=== PATIENT | female | born 1950 | race Caucasian/White ===

== ENCOUNTER → 2017-09-27 | Outpatient (CLI) | payer MEDICARE ==
[~2017-09-27] MED LIST: ASPI81EC PO; AZOR; BUME1 PO; CARV6.25 PO; ESCI20 PO; GEMF600 PO; GLIP10 PO; INSULANI SC; LEVFLO500 PO; METF500 PO; PRAV10 PO; Percocet 5-3251 EACH PO; SIMV10 PO; SPIHYD PO; SPIR50 PO
[2017-09-27 11:47] LABS: Hematocrit 37.3 % (33.0-51.0); Hemoglobin 11.5 g/dL (11.5-16.0)
[2017-09-27 14:48] LABS: Albumin, Blood 2.4 g/dL (3.4-5.0); Anion Gap 6 mmol/L (6-16); Blood Urea Nitrogen 35 mg/dL (8-24); Bun/Creatinine Ratio 20.1 (12.0-20.0); CO2, Blood 27 mmol/L (21-32); Calcium, Blood 9.5 mg/dL (8.5-10.1); Chloride, Blood 108 mmol/L (98-108); Creatinine, Blood 1.74 mg/dL (0.40-1.00); Glomerular Filtration Rate 31 (60-); Glucose, Blood 133 mg/dL (70-99); Phosphorus, Blood 3.4 mg/dL (2.5-4.9); Potassium, Blood 3.9 mmol/L (3.5-5.5); Sodium, Blood 141 mmol/L (136-145)
== END | disposition home or self-care (01) ==
LOC: LAB SHORT 11:14 → OLS 11:14
PROVIDERS: Internal Medicine
DX: N17.9 Acute kidney failure, unspecified (principal); N18.9 Chronic kidney disease, unspecified; D63.1 Anemia in chronic kidney disease
CPT/HCPCS: 36415; 80069; 85014; 85018

== ENCOUNTER 2018-05-24 08:36 | Observation (INO) | payer MEDICARE ==
[~2018-05-24] VITALS: Ht 162.6 cm; Wt 112.2 kg
[~2018-05-24 08:36] MED LIST changes: +CARV25 PO; +FURO20 PO; +GLIM4 PO; +INSULANPEN SC; +LISI20 PO; +Novolog100 UNIT/2 SC; +Omeprazole20 M1; -PRAV10 PO; +PRAV20 PO; +TORSE20 PO
[2018-05-24 09:31] LABS: BASOPHILS ABSOLUTE AUTO 0.03 K/mm3 (0.00-0.23); BASOPHILS PERCENT AUTO 1 % (0-2); EOSINOPHILS ABSOLUTE AUTO 0.04 K/mm3 (0.00-0.68); EOSINOPHILS PERCENT AUTO 1 % (0-6); Hematocrit 21.4 % (33.0-51.0); Hemoglobin 6.6 g/dL (11.5-16.0); IMMATURE GRAN ABSOLUTE AUTO 0.03 K/mm3 (0.00-0.10); IMMATURE GRAN PERCENT AUTO 1 % (0-1); LYMPHOCYTES ABSOLUTE AUTO 0.48 K/mm3 (0.84-5.20); LYMPHOCYTES PERCENT AUTO 8 % (21-46); MONOCYTES ABSOLUTE AUTO 0.31 K/mm3 (0.16-1.47); MONOCYTES PERCENT AUTO 5 % (4-13); Mean Corpuscular HGB 29.9 pg (26.0-34.0); Mean Corpuscular HGB Conc 30.8 g/dL (31.5-36.5); Mean Corpuscular Volume 97 fL (80-100); Mean Platelet Volume 11.5 fL (9.1-12.4); NEUTROPHILS ABSOLUTE AUTO 5.45 K/mm3 (1.96-9.15); NEUTROPHILS PERCENT AUTO 86 % (41-73); Platelet Count 173 K/mm3 (150-400); RDW Coefficient Variation 13.9 % (11.7-14.2); RDW Standard Deviation 48.5 fL (35.1-46.3); Red Blood Cell Count 2.21 M/mm3 (3.80-5.20); White Blood Cell Count 6.34 K/mm3 (4.00-11.30)
[2018-05-24 10:02] LABS: Albumin, Blood 1.8 g/dL (3.4-5.0); Albumin/Globulin Ratio 0.7 (0.8-1.8); Bilirubin, Total 0.2 mg/dL (0.1-1.0); Bun/Creatinine Ratio 28.4 (12.0-20.0); Calcium, Blood 8.1 mg/dL (8.5-10.1); Creatinine, Blood 1.97 mg/dL (0.40-1.00); Globulin, Blood 2.5 g/dL (2.2-4.0); Potassium, Blood 4.9 mmol/L (3.5-5.5); Total Protein, Blood 4.3 g/dL (6.4-8.2)
[2018-05-24 11:29] LABS: International Normalized Ratio 1.1; Prothrombin Time Results 11.3 Sec (9.7-11.5)
[2018-05-24] MEDS ORDERED: Excedrin Extra1 EACH PO (13:18)
[2018-05-24] MEDS ORDERED: CALC.25 PO (13:20)
--- NOTE | 2018-05-24 14:44 | NUR ---
FIRST UNIT PRBC'S STARTED IN ED THIS AM AND FINISHED UP IN ROOM 302. 300ML PRBC GIVEN AND 50ML FLUSHED. DAY SURGERY NURSE HERE TO GET PATIENT AND TAKEN DOWN FOR EGD. WILL STARTED 2ND UNIT PRBC'S WHEN PATIENT IS BACK FROM PROCEDURE.
--- NOTE | 2018-05-24 15:14 | NUR ---
FROM THIRD FLOOR TO [facility] ADMISSION STARTED AND ASSESMENT STARTED CALL TO PATIENTS AIRWAY PER RNS ASSESSMENT MP SCORE 4 ALSO BMI IS 42 AND OTHER COMORBIDITIES. REFERRED TO ANNESTHIOLOGIST.
--- NOTE | 2018-05-24 15:22 | NUR ---
05/24/18 1522 Popeye Price Bite Block PlacedPatient to ENDO 1History, Chart, Medications and Allergies reviewed before start of procedure.MONITOR INTACT WITH CONTINUOUS PULSE OXIMETRY AND INTERMITTENT BP.O2 VIA N/C INTACT THROUGHOUT SEDATION/PROCEDURE.See Anesthesia record
[2018-05-24 20:37] LABS: BASOPHILS ABSOLUTE AUTO 0.05 K/mm3 (0.00-0.23); BASOPHILS PERCENT AUTO 1 % (0-2); EOSINOPHILS PERCENT AUTO 1 % (0-6); Hematocrit 26.4 % (33.0-51.0); Hemoglobin 8.5 g/dL (11.5-16.0); IMMATURE GRAN ABSOLUTE AUTO 0.05 K/mm3 (0.00-0.10); IMMATURE GRAN PERCENT AUTO 1 % (0-1); LYMPHOCYTES ABSOLUTE AUTO 1.03 K/mm3 (0.84-5.20); LYMPHOCYTES PERCENT AUTO 14 % (21-46); MONOCYTES PERCENT AUTO 8 % (4-13); Mean Corpuscular HGB Conc 32.2 g/dL (31.5-36.5); Mean Platelet Volume 11.9 fL (9.1-12.4); NEUTROPHILS ABSOLUTE AUTO 5.45 K/mm3 (1.96-9.15); NEUTROPHILS PERCENT AUTO 75 % (41-73); Platelet Count 135 K/mm3 (150-400); RDW Coefficient Variation 15.1 % (11.7-14.2); RDW Standard Deviation 50.4 fL (35.1-46.3); Red Blood Cell Count 2.83 M/mm3 (3.80-5.20); White Blood Cell Count 7.28 K/mm3 (4.00-11.30)
[2018-05-24 20:38] LABS: Mean Corpuscular Volume 93 fL (80-100)
--- NOTE | 2018-05-25 01:15 | NUR ---
05/24/182036 SECOND IV IN WILIAN RUNNING PROTONIX GTT.
--- NOTE | 2018-05-25 01:16 | NUR ---
05/24/182036 PT LYING IN BED, DENIES ANY DISCOMFORT AT THIS TIME. BS 160. NO APPARENT SIGNS OF DISTRESS. CALL LIGHT IS IN REACH.
--- NOTE | 2018-05-25 01:57 | NUR ---
05/24/18 2346 PT LYING IN BED, EYES CLOSED, APPEARS TO BE RESTING. WAKES EASILY TO VERBAL STIMULI. NO APPARENT SIGNS OF DISTRESS. CALL LIGHT IS IN REACH.
--- NOTE | 2018-05-25 01:58 | NUR ---
PT LYING IN BED, EYES CLOSED, APPEARS TO BE RESTING. BREATHING IS EVEN, UNLABORED. NO APPARENT SIGNS OF DISTRESS. CALL LIGHT IS IN REACH.
--- NOTE | 2018-05-25 03:33 | NUR ---
PT LYING IN BED, EYES CLOSED, APPEARS TO BE RESTING. BREATHING IS EVEN, UNLABORED. NO APPARENT SIGNS OF DISTRESS. CALL LIGHT IS IN REACH.
--- NOTE | 2018-05-25 03:38 | NUR ---
PT IS AAO X 4, ON RA. DENIED ANY DISCOMFORT FOR THIS SHIFT. BS 160. SCD'S. 2 UNITS BLOOD GIVEN, HGB WAS 6.6, AFTER 2ND UNIT ABOUT 1999 IT WAS 8.5, ANOTHER LAB WILL BE DRAWN AT 0500. PT HAD A BLACK STOOL FOR THIS SHIFT, DR YODER.
[2018-05-25 05:29] LABS: BASOPHILS ABSOLUTE AUTO 0.05 K/mm3 (0.00-0.23); BASOPHILS PERCENT AUTO 1 % (0-2); EOSINOPHILS ABSOLUTE AUTO 0.28 K/mm3 (0.00-0.68); EOSINOPHILS PERCENT AUTO 4 % (0-6); Hemoglobin 8.3 g/dL (11.5-16.0); IMMATURE GRAN ABSOLUTE AUTO 0.03 K/mm3 (0.00-0.10); IMMATURE GRAN PERCENT AUTO 0 % (0-1); LYMPHOCYTES ABSOLUTE AUTO 0.75 K/mm3 (0.84-5.20); LYMPHOCYTES PERCENT AUTO 11 % (21-46); MONOCYTES ABSOLUTE AUTO 0.48 K/mm3 (0.16-1.47); MONOCYTES PERCENT AUTO 7 % (4-13); Mean Corpuscular HGB 29.9 pg (26.0-34.0); Mean Corpuscular HGB Conc 31.9 g/dL (31.5-36.5); Mean Corpuscular Volume 94 fL (80-100); Mean Platelet Volume 11.5 fL (9.1-12.4); NEUTROPHILS ABSOLUTE AUTO 5.14 K/mm3 (1.96-9.15); NEUTROPHILS PERCENT AUTO 77 % (41-73); Platelet Count 137 K/mm3 (150-400); RDW Coefficient Variation 15.9 % (11.7-14.2); RDW Standard Deviation 53.2 fL (35.1-46.3); Red Blood Cell Count 2.78 M/mm3 (3.80-5.20); White Blood Cell Count 6.73 K/mm3 (4.00-11.30)
--- NOTE | 2018-05-25 05:30 | NUR ---
PT LYING IN BED, EYES CLOSED, APPEARS TO BE RESTING. BREATHING IS EVEN, UNLABORED. NO APPARENT SIGNS OF DISTRESS. CALL LIGHT IS IN REACH. NO OTHER CHANGES THIS SHIFT.
[2018-05-25] MEDS ORDERED: PANT40 PO (10:55)
--- NOTE | 2018-05-25 12:27 | NUR ---
PATIENT D/C'D TO HOME WITH FRIEND. D/C INSTRUCTIONS AND EDUCATIONN DISCUSSED WITH PATIENT AND COPY PROVIDED. RX MEDICATIONS FAXED TO [facility]. PATIENT DENIES ANY FURTHER QUESTIONS OR CONCERNS.
[2018-07-03] MEDS ORDERED: BENZ100A PO (14:51)
[2018-07-03] MEDS ORDERED: ERGO400 PO (14:53)
[2018-07-03] MEDS ORDERED: IRON150C PO (14:53)
[2018-07-09] MEDS ORDERED: Omeprazole20 M1 (12:40)
== END 2018-05-25 12:28 | disposition home or self-care (01) ==
LOC: ER 08:36 → MEDS 08:37 → ENPENDDIS 05-25 10:56 → MEDS 05-25 12:28
PROVIDERS: Emergency Medicine; Internal Medicine Gastroenterology; ADMIT Hospitalist
PROC: 0DB68ZX Excision of Stomach, Via Natural or Artificial Opening Endoscopic, Diagnostic (ICD-10-PCS; principal; 2018-05-24 15:00)
DX: K25.9 Gastric ulcer, unspecified as acute or chronic, without hemorrhage or perforation (principal); D62 Acute posthemorrhagic anemia; I13.0 Hypertensive heart and chronic kidney disease with heart failure and stage 1 through stage 4 chronic kidney disease, or unspecified chronic kidney disease; I50.22 Chronic systolic (congestive) heart failure; N18.4 Chronic kidney disease, stage 4 (severe); E11.22 Type 2 diabetes mellitus with diabetic chronic kidney disease; E66.9 Obesity, unspecified; K92.0 Hematemesis; K62.5 Hemorrhage of anus and rectum; E78.5 Hyperlipidemia, unspecified; F32.9 Major depressive disorder, single episode, unspecified; Z79.899 Other long term (current) drug therapy
CPT/HCPCS: 36415; 36430; 80053; 82947; 83690; 85025; 85610; 86850; 86900; 86901; 86923; 88305; 88342; 96365; 96366; 96376; 99285-25; C9113; G0378; J2250; J7030; J7120; P9016

== ENCOUNTER 2018-08-14 09:56 | Day surgery (SDC) | payer MEDICARE ==
[~2018-08-14] VITALS: Wt 123.7 kg
[~2018-08-14 09:56] MED LIST changes: +BENZ100A PO; +CALC.25 PO; +ERGO400 PO; +Excedrin Extra1 EACH PO; +IRON150C PO; +PANT40 PO
--- NOTE | 2018-08-14 10:32 | NUR ---
History, Chart, Medications and Allergies reviewed before start of procedure. Patient states colon prep results clear. Patient States Post-Procedure ride home has been arranged.
--- NOTE | 2018-08-14 10:56 | NUR ---
DR BURDICK AT BEDSIDE. PT SAT 77-LOW 80% USING EARPROBE ON BILAT EARS, WAVEFORM CONSISTANT. PT DENIES SOB, NO COUGH, LUNGS ARE CLEAR. BLOOD SUGAR 40. PT STATES BLOOD SUGAR WAS 61 THIS AM WHEN SHE CHECKED. STAT ABG DRAWN, WILL START IV AND TREAT LOW BLOOD SUGAR.
[2018-08-14 11:04] LABS: PCO2 Arterial 49.4 mmHg (35-45); PO2 Arterial 133 mmHg (80-100); pH Blood Arterial 7.34 (7.35-7.45)
--- NOTE | 2018-08-14 11:09 | NUR ---
DIFFICULTY STARTING IV, ABG RESULTS BACK, DR BURDICK CANCELLED PROCEDURE. PT DRINKING JUICE FOR LOW BLOOD SUGAR. PT STATES SHE FEELING SIGNS OF HYPOGLYCEMIA. DR BURDICK SPEAKING TO DR HANSEN.
--- NOTE | 2018-08-14 11:22 | NUR ---
DR HANSEN SPOKE WITH PT AND PT FRIEND GINA. DR HANSEN DOES NOT FEEL PT NEEDS TO GO TO THE ER AT THIS TIME. PT DENIES FEELING SOB, O2 SAT PER FINGER PROBE 88-92% ON ROOM AIR.
--- NOTE | 2018-08-14 11:37 | NUR ---
REPEAT BLOOD SUGAR-59, GAVE SECOND APPLE JUICE. TOLERATING WELL, PT HAS NO COMPLAINTS. PT TO GET DRESSED.
--- NOTE | 2018-08-14 13:16 | NUR ---
1150- PT DRESSED, ESCORTED OUT OF DEPARTMENT VIA W/C. PT ADVOCATE HAS NOT RETURNED CALL YET, WILL RETRY AND CONTACT PT REGARDING HER ADVICE.
--- NOTE | 2018-08-14 13:55 | NUR ---
SUNITA HOYT RETURNED MY CALL. SHE WILL CALL PT TO SEE WHAT SERVICES SHE CAN HELP HER WITH.
== END 2018-08-14 23:00 | disposition home or self-care (01) ==
LOC: ORSCMMR 09:56 → ORD 10:30 → ORSCMMR 10:30
PROVIDERS: Internal Medicine Gastroenterology
DX: Z53.9 Procedure and treatment not carried out, unspecified reason (principal); Z86.010 Personal history of colon polyps
CPT/HCPCS: 36600; 82803; 82947; J7120

== ENCOUNTER 2018-09-13 00:25 | Inpatient (IN) | payer MEDICARE ==
[~2018-09-13] VITALS: Ht 162.6 cm; Wt 116.1 kg
[2018-09-13 01:25] LABS: Albumin, Blood 2.3 g/dL (3.4-5.0); Albumin/Globulin Ratio 0.7 (0.8-1.8); Bilirubin, Total 0.3 mg/dL (0.1-1.0); Calcium, Blood 8.5 mg/dL (8.5-10.1); Globulin, Blood 3.2 g/dL (2.2-4.0); Total Protein, Blood 5.5 g/dL (6.4-8.2); Troponin I 0.025 ng/mL (0.000-0.040)
[2018-09-13 01:27] LABS: BASOPHILS ABSOLUTE AUTO 0.03 K/mm3 (0.00-0.23); BASOPHILS PERCENT AUTO 1 % (0-2); EOSINOPHILS ABSOLUTE AUTO 0.14 K/mm3 (0.00-0.68); EOSINOPHILS PERCENT AUTO 3 % (0-6); IMMATURE GRAN ABSOLUTE AUTO 0.01 K/mm3 (0.00-0.10); IMMATURE GRAN PERCENT AUTO 0 % (0-1); LYMPHOCYTES ABSOLUTE AUTO 0.46 K/mm3 (0.84-5.20); LYMPHOCYTES PERCENT AUTO 11 % (21-46); MONOCYTES PERCENT AUTO 9 % (4-13); Mean Corpuscular HGB 27.4 pg (26.0-34.0); Mean Corpuscular HGB Conc 29.7 g/dL (31.5-36.5); Mean Corpuscular Volume 92 fL (80-100); Mean Platelet Volume 12.3 fL (9.1-12.4); NEUTROPHILS ABSOLUTE AUTO 3.23 K/mm3 (1.96-9.15); NEUTROPHILS PERCENT AUTO 76 % (41-73); Platelet Count 158 K/mm3 (150-400); RDW Coefficient Variation 17.2 % (11.7-14.2); RDW Standard Deviation 58.1 fL (35.1-46.3); Red Blood Cell Count 4.01 M/mm3 (3.80-5.20); White Blood Cell Count 4.27 K/mm3 (4.00-11.30)
[2018-09-13 05:51] LABS: Hematocrit 36.7 % (33.0-51.0); Hemoglobin 10.5 g/dL (11.5-16.0); Mean Corpuscular HGB 26.6 pg (26.0-34.0); Mean Corpuscular HGB Conc 28.6 g/dL (31.5-36.5); Mean Corpuscular Volume 93 fL (80-100); Mean Platelet Volume 12.6 fL (9.1-12.4); Platelet Count 145 K/mm3 (150-400); RDW Coefficient Variation 17.2 % (11.7-14.2); RDW Standard Deviation 58.1 fL (35.1-46.3); Red Blood Cell Count 3.95 M/mm3 (3.80-5.20); White Blood Cell Count 3.93 K/mm3 (4.00-11.30)
--- NOTE | 2018-09-13 05:58 | NUR ---
0300 68 Y/O MORBID OBESE FEMALE ADMITTED TO ROOM 363 PER STRETCHER FROM ER. PT HAS PURSE AT SIDE AND DENIES REQUIRING ANYTHING TO BE LOCKED UP AT THIS TIME AND WILL SEND BELONGINGS HOME WHEN HER BROTHER VISITS TODAY. PT VOICED THAT SHE HAVING INCREASING DIFFICULTY WITH PERFORMING ADLS AND IADLS IN HER HOME. PT VOICED SHE EATS ALOT OF PEANUT BUTTER AND JELLY SANDWICHES, UNABLE TO WASH DISHES, PERFORM WAREHOUSE MANAGER OR PROPERLY BATHE SELF ON REGULAR BASIS.
--- NOTE | 2018-09-13 06:02 | NUR ---
68 Y/O FEMALE RESTED COMFORTABLY THIS AM. PT WAS INCONTINENT URINE WITH STRONG ODOR NOTED DURING CLEANSING UP OF PATIENT THIS AM. PT DENIES PAIN OR NAUSEA. PTS BED LOW POSITION, CALL LIGHT AT SIDE.
[2018-09-13 06:11] LABS: Albumin, Blood 2.2 g/dL (3.4-5.0); Albumin/Globulin Ratio 0.8 (0.8-1.8); Bilirubin, Total 0.3 mg/dL (0.1-1.0); Bun/Creatinine Ratio 21.6 (12.0-20.0); Calcium, Blood 8.7 mg/dL (8.5-10.1); Creatinine, Blood 1.99 mg/dL (0.40-1.00); Globulin, Blood 2.9 g/dL (2.2-4.0); Potassium, Blood 3.9 mmol/L (3.5-5.5); Total Protein, Blood 5.1 g/dL (6.4-8.2)
--- NOTE | 2018-09-13 19:00 | NUR ---
SHIFT SUMMARY NO ACUTE CHANGES. PATIENT DENIES PAIN, NAUSEA, AND SHORTNESS OF BREATH. PATIENT WORKED WITH PT TODAY, UP 1 ASSIST W/FWW TO BR. PATIENT HAD ECHO AND VENOUS DOPPLER OF LEGS TODAY. PLEASANT AND COOPERATIVE. SOCIAL SERVICE CONSULT AND CARDIOLOGY CONSULT PUT IN TODAY. CARDIOLOGY TO SEE PATIENT IN THE MORNING. CALL LIGHT IN REACH, MONITOR.
--- NOTE | 2018-09-13 20:02 | NUR ---
DR PATEL CALLED STATES HE LOOKED AT PT CHART AND FEELS SHE IS STABLE ENOUGH AND UNABLE TO SEE HER TONIGHT. SUGGESTS NURSE TO PAGE BOX TOE FLANGER STITCHDOWNS FOR TOMORROW TO SEE PT.
--- NOTE | 2018-09-13 21:33 | NUR ---
BOWLING BALL MARKER PAGED, BUT NO CALL BACK OF YET
[2018-09-14 05:03] LABS: BASOPHILS ABSOLUTE AUTO 0.03 K/mm3 (0.00-0.23); BASOPHILS PERCENT AUTO 1 % (0-2); EOSINOPHILS ABSOLUTE AUTO 0.15 K/mm3 (0.00-0.68); EOSINOPHILS PERCENT AUTO 5 % (0-6); Hemoglobin 10.7 g/dL (11.5-16.0); IMMATURE GRAN ABSOLUTE AUTO 0.01 K/mm3 (0.00-0.10); IMMATURE GRAN PERCENT AUTO 0 % (0-1); LYMPHOCYTES ABSOLUTE AUTO 0.34 K/mm3 (0.84-5.20); LYMPHOCYTES PERCENT AUTO 11 % (21-46); MONOCYTES ABSOLUTE AUTO 0.33 K/mm3 (0.16-1.47); MONOCYTES PERCENT AUTO 11 % (4-13); Mean Corpuscular HGB 26.7 pg (26.0-34.0); Mean Corpuscular HGB Conc 28.9 g/dL (31.5-36.5); Mean Corpuscular Volume 92 fL (80-100); Mean Platelet Volume 12.2 fL (9.1-12.4); NEUTROPHILS ABSOLUTE AUTO 2.25 K/mm3 (1.96-9.15); NEUTROPHILS PERCENT AUTO 72 % (41-73); Platelet Count 145 K/mm3 (150-400); RDW Coefficient Variation 17.1 % (11.7-14.2); RDW Standard Deviation 58.1 fL (35.1-46.3); Red Blood Cell Count 4.01 M/mm3 (3.80-5.20); White Blood Cell Count 3.11 K/mm3 (4.00-11.30)
[2018-09-14 05:26] LABS: Albumin/Globulin Ratio 0.7 (0.8-1.8); Bilirubin, Total 0.5 mg/dL (0.1-1.0); Bun/Creatinine Ratio 20.4 (12.0-20.0); Calcium, Blood 8.7 mg/dL (8.5-10.1); Creatinine, Blood 2.01 mg/dL (0.40-1.00); Globulin, Blood 2.9 g/dL (2.2-4.0); Potassium, Blood 3.9 mmol/L (3.5-5.5); Total Protein, Blood 4.9 g/dL (6.4-8.2)
--- NOTE | 2018-09-14 06:01 | NUR ---
SHIFT SUMMARY PT SLEPT WELL DURING THE NIGHT, INCONTINENT OF URINE. NO ACUTE EVENTS OR CHANGES NOTED DURING THE NIGHT, WILL CONTINUE TO MONITOR.
[2018-09-14 13:13] LABS: Adenovirus F 40/41 Not Detected (NOT DETECT); Astrovirus Not Detected (NOT DETECT); Campylobacter Sp Not Detected (NOT DETECT); Cryptosporidium Not Detected (NOT DETECT); Cyclospora Cayetanensis Not Detected (NOT DETECT); E. Coli O157 Not Detected (NOT DETECT); Entamoeba Histolytica Not Detected (NOT DETECT); Enteroaggregative E. coli-EAEC Not Detected (NOT DETECT); Enteropathogenic E. coli-EPEC Not Detected (NOT DETECT); Enterotoxigenic E. coli-ETEC Not Detected (NOT DETECT); Giardia Lamblia Not Detected (NOT DETECT); Norovirus GI/GII Not Detected (NOT DETECT); Plesiomonas Shigelloides Not Detected (NOT DETECT); Rotavirus A Not Detected (NOT DETECT); Salmonella Sp Not Detected (NOT DETECT); Sapovirus Not Detected (NOT DETECT); Shiga Toxin-prod E. coli-STEC Not Detected (NOT DETECT); Shigella/Enteroin E. coli-EIEC Not Detected (NOT DETECT); Vibrio Cholerae Not Detected (NOT DETECT); Vibrio Sp Not Detected (NOT DETECT); Yersinia Enterocolitica Not Detected (NOT DETECT)
--- NOTE | 2018-09-14 13:25 | NUR ---
Pt. is sitting up in a chair reading she is doing well and [facility]
--- NOTE | 2018-09-14 15:40 | NUR ---
SUMMARY PT IS A/O X 4, PLEASANT/COOPERATIVE. 1 ASSIST W FWW TO BR. DR JOHNSON IN THIS AM FOR CARDIAC CONSULT. REVIEW HX & TX PLAN WITH PT. ADJUST BP MEDS D/T ELEVATED SBP. CHANGE IV LASIX TO 20MG TID. PT STATE NO SOB @ REST, STATE NO PAIN/DISCOMFORT TODAY. LUNGS DECREASED T/O WITH CRACKLES BASES, BIOX >90% RA. BLE EDEMA 3+, ENCOURAGE PT TO ELEVATE WHEN IN BED. DR JOHNSON PLACE PT ON FLUID RESTRICTION 1.2L/DAY. PT VERBALIZE UNDERSTANDING.
[2018-09-15 04:45] LABS: Hematocrit 33.1 % (33.0-51.0); Hemoglobin 9.8 g/dL (11.5-16.0); Mean Corpuscular HGB 27.1 pg (26.0-34.0); Mean Corpuscular HGB Conc 29.6 g/dL (31.5-36.5); Mean Corpuscular Volume 91 fL (80-100); Mean Platelet Volume 11.2 fL (9.1-12.4); Platelet Count 142 K/mm3 (150-400); RDW Coefficient Variation 17.1 % (11.7-14.2); RDW Standard Deviation 57.4 fL (35.1-46.3); Red Blood Cell Count 3.62 M/mm3 (3.80-5.20); White Blood Cell Count 2.99 K/mm3 (4.00-11.30)
[2018-09-15 04:51] LABS: BASOPHILS ABSOLUTE AUTO 0.03 K/mm3 (0.00-0.23); BASOPHILS PERCENT AUTO 1 % (0-2); EOSINOPHILS ABSOLUTE AUTO 0.17 K/mm3 (0.00-0.68); EOSINOPHILS PERCENT AUTO 6 % (0-6); Hematocrit 33.8 % (33.0-51.0); Hemoglobin 9.8 g/dL (11.5-16.0); IMMATURE GRAN ABSOLUTE AUTO 0.01 K/mm3 (0.00-0.10); IMMATURE GRAN PERCENT AUTO 0 % (0-1); LYMPHOCYTES ABSOLUTE AUTO 0.47 K/mm3 (0.84-5.20); LYMPHOCYTES PERCENT AUTO 16 % (21-46); MONOCYTES ABSOLUTE AUTO 0.31 K/mm3 (0.16-1.47); MONOCYTES PERCENT AUTO 10 % (4-13); Mean Corpuscular HGB 26.9 pg (26.0-34.0); Mean Corpuscular Volume 93 fL (80-100); Mean Platelet Volume 11.6 fL (9.1-12.4); NEUTROPHILS PERCENT AUTO 67 % (41-73); Platelet Count 142 K/mm3 (150-400); RDW Coefficient Variation 17.1 % (11.7-14.2); RDW Standard Deviation 58.3 fL (35.1-46.3); Red Blood Cell Count 3.64 M/mm3 (3.80-5.20); White Blood Cell Count 2.99 K/mm3 (4.00-11.30)
[2018-09-15 05:33] LABS: Calcium, Blood 8.6 mg/dL (8.5-10.1); Creatinine, Blood 2.05 mg/dL (0.40-1.00); Magnesium, Blood 2.3 mg/dL (1.6-2.4)
[2018-09-15 05:46] LABS: Albumin, Blood 1.9 g/dL (3.4-5.0); Anion Gap 4 mmol/L (6-16); Blood Urea Nitrogen 42 mg/dL (8-24); Bun/Creatinine Ratio 20.6 (12.0-20.0); CO2, Blood 31 mmol/L (21-32); Calcium, Blood 8.5 mg/dL (8.5-10.1); Chloride, Blood 108 mmol/L (98-108); Creatinine, Blood 2.04 mg/dL (0.40-1.00); Glomerular Filtration Rate 26 (60-); Glucose, Blood 94 mg/dL (70-99); Phosphorus, Blood 3.3 mg/dL (2.5-4.9); Sodium, Blood 143 mmol/L (136-145)
--- NOTE | 2018-09-15 05:47 | NUR ---
SHIFT SUMMARY PT SLEPT WELL DURING THE NIGHT, NO ACUTE CHANGES NOTED. WILL CONTINUE TO MONITOR. PT INCONTINENT DURING THE NIGHT.
--- NOTE | 2018-09-15 14:21 | NUR ---
Pt. is sitting in a chair resting her lunch, she reports do well encouraged her and offered prayers
--- NOTE | 2018-09-15 17:51 | NUR ---
SUMMARY PT IS A/O X4, PLEASANT AFFECT, STATE NO PAIN, NO SHORTNESS OF BREATH, NO DISCOMFORT T/O DAY. SHE IS 1 ASSIST TO CHAIR/BSC. HOSPITAL ADMITTING CLERK ASSIST HER TO SHOWER TODAY. CARDIOLOGY, DR JOHNSON IN TO SEE HER THIS AM, INCREASE BP MEDS R/T HTN. THIS AFTERNOON SBP 188, PRN IV HYDRALAZINE GIVEN, SBP DECREASE SOMEWHAT TO 180. TELE CONTINUES, SR W BBB 60'S. LUNGS DECREASED W CRACKLES BASES HOWEVER SEEM IMPROVED FROM PREVIOUS DAY, BLE EDEMA 2-3+, STANDING WT OBTAINED, 258 LBS, PT STATE 10LB WT LOSS SINCE ADMIT. IV LASIX CONTINUES. PT HAS BEEN UP IN CHAIR FOR ALL MEALS TODAY.
[2018-09-16 04:44] LABS: Hematocrit 33.6 % (33.0-51.0); Hemoglobin 9.8 g/dL (11.5-16.0); Mean Corpuscular HGB 26.8 pg (26.0-34.0); Mean Corpuscular HGB Conc 29.2 g/dL (31.5-36.5); Mean Corpuscular Volume 92 fL (80-100); Mean Platelet Volume 11.1 fL (9.1-12.4); Platelet Count 128 K/mm3 (150-400); RDW Coefficient Variation 17.2 % (11.7-14.2); RDW Standard Deviation 58.4 fL (35.1-46.3); Red Blood Cell Count 3.66 M/mm3 (3.80-5.20); White Blood Cell Count 2.96 K/mm3 (4.00-11.30)
[2018-09-16 04:58] LABS: Anion Gap 4 mmol/L (6-16); Blood Urea Nitrogen 44 mg/dL (8-24); Bun/Creatinine Ratio 21.1 (12.0-20.0); CO2, Blood 32 mmol/L (21-32); Calcium, Blood 8.6 mg/dL (8.5-10.1); Chloride, Blood 106 mmol/L (98-108); Creatinine, Blood 2.09 mg/dL (0.40-1.00); Glomerular Filtration Rate 25 (60-); Glucose, Blood 124 mg/dL (70-99); Phosphorus, Blood 3.4 mg/dL (2.5-4.9); Potassium, Blood 4.2 mmol/L (3.5-5.5); Sodium, Blood 142 mmol/L (136-145)
--- NOTE | 2018-09-16 07:30 | NUR ---
NOC SHIFT SUMARY PT PLEASANT AND COOPERATIVE WITH CARE THIS NIGHT. VSS. SLEPT MOST OF NIGHT. NO ACUTE CHANGES NOTED. REPORT TO ONCOMING RN.
--- NOTE | 2018-09-16 18:15 | NUR ---
PT AOX4 AND COOPERATIVE OF ALL CARE. ONE PERSON ASSIST TO CHAIR OR BED WITH GAITBELT. PT CALLS APPROPRIATELY. DIRRHEA TREATED PER EMAR. PT IS ALSO INCONTENENT OF BOWEL AND BLADDER. PT STATES SHE HAS HAD NO SOB TODAY AND IS FEELING MUCH BETTER AT THIS TIME WILL CONTINUE TO MONITOR.
[2018-09-17 05:22] LABS: Hematocrit 33.6 % (33.0-51.0); Hemoglobin 9.7 g/dL (11.5-16.0); Mean Corpuscular HGB 26.4 pg (26.0-34.0); Mean Corpuscular HGB Conc 28.9 g/dL (31.5-36.5); Mean Corpuscular Volume 91 fL (80-100); Mean Platelet Volume 12.3 fL (9.1-12.4); Platelet Count 141 K/mm3 (150-400); RDW Coefficient Variation 17.2 % (11.7-14.2); RDW Standard Deviation 57.3 fL (35.1-46.3); Red Blood Cell Count 3.68 M/mm3 (3.80-5.20)
[2018-09-17 05:49] LABS: Albumin, Blood 2.1 g/dL (3.4-5.0); Anion Gap 4 mmol/L (6-16); Blood Urea Nitrogen 48 mg/dL (8-24); Bun/Creatinine Ratio 20.7 (12.0-20.0); CO2, Blood 31 mmol/L (21-32); Calcium, Blood 8.6 mg/dL (8.5-10.1); Chloride, Blood 106 mmol/L (98-108); Creatinine, Blood 2.32 mg/dL (0.40-1.00); Glomerular Filtration Rate 22 (60-); Glucose, Blood 87 mg/dL (70-99); Phosphorus, Blood 3.9 mg/dL (2.5-4.9); Potassium, Blood 4.4 mmol/L (3.5-5.5); Sodium, Blood 141 mmol/L (136-145)
--- NOTE | 2018-09-17 05:54 | NUR ---
NOC SHIFT SUMMARY PT IS VERY PLEASANT AND COOPERATIVE WITH CARE. WAS TREATED FOR DIARRHEA WITH IMMODIUM. SHE HAS LARGELY SLEPT THIS NIGHT. NO ACUTE CHANGES NOTED. APPEARS IN NO ACUTE DISTRESS. WILL CONTINUE TO MONITOR.
[2018-09-17] MEDS ORDERED: HUMALOG KW200 UNIT/1 (12:05)
[2018-09-17] MEDS ORDERED: ONDA4ODT MM (12:06)
[2018-09-17] MEDS ORDERED: Anti-Diarrheal2 MG PO (12:06)
[2018-09-17] MEDS ORDERED: AMLO5 PO (12:06)
--- NOTE | 2018-09-17 13:24 | NUR ---
PT TRANFERED TO [facility] AT 1320 VIA [facility]. PT AOX4 AND COOPERATIVE OF ALL CARE. REPORT CALLED TO RECIEVING RN PRIOR TO TRANSPORT. ALL BELONGINGS WERE TRANSFERED WITH PT. PACKET SENT WITH BOILERMAKER.
== END 2018-09-17 13:15 | DRG 291 ==
LOC: ER 00:25 → MEDS 00:26 → ENPENDDIS 09-17 11:00 → EDPENDDIS 09-17 11:00 → MEDS 09-17 13:15
PROVIDERS: Emergency Medicine; Family Medicine; Internal Medicine Cardiovascular Disease; ADMIT Internal Medicine
DX: I13.0 Hypertensive heart and chronic kidney disease with heart failure and stage 1 through stage 4 chronic kidney disease, or unspecified chronic kidney disease (principal); I50.43 Acute on chronic combined systolic (congestive) and diastolic (congestive) heart failure; Z68.42 Body mass index [BMI] 45.0-49.9, adult; N18.4 Chronic kidney disease, stage 4 (severe); E11.22 Type 2 diabetes mellitus with diabetic chronic kidney disease; Z51.5 Encounter for palliative care; I42.0 Dilated cardiomyopathy; E78.5 Hyperlipidemia, unspecified; E66.01 Morbid (severe) obesity due to excess calories; Z66 Do not resuscitate; I25.10 Atherosclerotic heart disease of native coronary artery without angina pectoris; G47.30 Sleep apnea, unspecified; I27.20 Pulmonary hypertension, unspecified; Z87.81 Personal history of (healed) traumatic fracture
CPT/HCPCS: 36415; 71046; 80048; 80053; 80069; 82947; 83735; 83880; 84443; 84484; 85025; 85027; 87507; 93005; 93010; 93306; 93971; 94667; 94760; 96374; 97110; 97116; 97162; 97166; 97530; 97535; 98960; 99285-25; J0360; J1650; J1940

== ENCOUNTER 2018-11-20 14:17 | Inpatient (IN) | payer MEDICARE ==
[~2018-11-20] VITALS: Ht 162.6 cm; Wt 120.1 kg
[~2018-11-20 14:17] MED LIST changes: +AMLO5 PO; +Anti-Diarrheal2 MG PO; +HUMALOG KW200 UNIT/1; +ONDA4ODT MM
[2018-11-20 14:45] LABS: BASOPHILS ABSOLUTE AUTO 0.05 K/mm3 (0.00-0.23); BASOPHILS PERCENT AUTO 1 % (0-2); EOSINOPHILS ABSOLUTE AUTO 0.14 K/mm3 (0.00-0.68); EOSINOPHILS PERCENT AUTO 3 % (0-6); Hemoglobin 11.1 g/dL (11.5-16.0); IMMATURE GRAN ABSOLUTE AUTO 0.02 K/mm3 (0.00-0.10); IMMATURE GRAN PERCENT AUTO 0 % (0-1); LYMPHOCYTES ABSOLUTE AUTO 0.29 K/mm3 (0.84-5.20); LYMPHOCYTES PERCENT AUTO 6 % (21-46); MONOCYTES PERCENT AUTO 8 % (4-13); Mean Corpuscular HGB 26.7 pg (26.0-34.0); Mean Corpuscular HGB Conc 27.8 g/dL (31.5-36.5); Mean Corpuscular Volume 96 fL (80-100); Mean Platelet Volume 12.4 fL (9.1-12.4); NEUTROPHILS ABSOLUTE AUTO 4.38 K/mm3 (1.96-9.15); NEUTROPHILS PERCENT AUTO 83 % (41-73); Platelet Count 196 K/mm3 (150-400); RDW Coefficient Variation 18.6 % (11.7-14.2); RDW Standard Deviation 65.1 fL (35.1-46.3); Red Blood Cell Count 4.16 M/mm3 (3.80-5.20); White Blood Cell Count 5.28 K/mm3 (4.00-11.30)
[2018-11-20 15:07] LABS: Albumin, Blood 2.4 g/dL (3.4-5.0); Albumin/Globulin Ratio 0.7 (0.8-1.8); Bilirubin, Total 0.4 mg/dL (0.1-1.0); Calcium, Blood 8.4 mg/dL (8.5-10.1); Creatinine, Blood 2.08 mg/dL (0.40-1.00); Globulin, Blood 3.5 g/dL (2.2-4.0); Potassium, Blood 5.3 mmol/L (3.5-5.5); Total Protein, Blood 5.9 g/dL (6.4-8.2); Troponin I 0.022 ng/mL (0.000-0.040)
[2018-11-20 16:12] LABS: PCO2 Arterial 60.1 mmHg (35-45); PO2 Arterial 44.2 mmHg (80-100); pH Blood Arterial 7.32 (7.35-7.45)
--- NOTE | 2018-11-20 19:10 | NUR ---
ADMIT NOTE/ SHIFT SUMMARY- PT ADMITTED AT SHIFT CHANGE.PT ARRIVED ON MEDICAL FLOOR PT WAS ABLE TO STAND AND PIVOT TRANSFER TO THE BED FROM THE [facility]. PT RECIEVED IV LASIX IN THE ED PER REPORT, PT ATTENDS CLOTHING AND THE BED WERE SATURATED WHEN SHE ARRIVED EXTRA LARGE UNMEASURED VOID. PER TELEPHONE REPORT FROM CELIO SHEPPARD PT WAS ASKED ABOUT USING THE BEDSIDE COMODE AND SHE STATED "I HAVE ATTENDS ON, THAT'S WHAT THEY'RE FOR." PT ALERT AND ORIENTED, 2 PERSON MAX ASSIST WITH TRANSFERS AT THIS TIME. PER PT SHE IS W/C BOUND AT BASELINE, PT RA AT BASELINE CURRENTLY ON 4L NC.
[2018-11-20] MEDS ORDERED: AMLO5 PO (19:11)
[2018-11-20] MEDS ORDERED: TORSE20 PO (19:17)
[2018-11-21 05:11] LABS: BASOPHILS ABSOLUTE AUTO 0.05 K/mm3 (0.00-0.23); BASOPHILS PERCENT AUTO 1 % (0-2); EOSINOPHILS ABSOLUTE AUTO 0.21 K/mm3 (0.00-0.68); EOSINOPHILS PERCENT AUTO 5 % (0-6); Hematocrit 38.5 % (33.0-51.0); Hemoglobin 10.8 g/dL (11.5-16.0); IMMATURE GRAN ABSOLUTE AUTO 0.01 K/mm3 (0.00-0.10); IMMATURE GRAN PERCENT AUTO 0 % (0-1); LYMPHOCYTES ABSOLUTE AUTO 0.37 K/mm3 (0.84-5.20); LYMPHOCYTES PERCENT AUTO 9 % (21-46); MONOCYTES PERCENT AUTO 12 % (4-13); Mean Corpuscular HGB 26.9 pg (26.0-34.0); Mean Corpuscular HGB Conc 28.1 g/dL (31.5-36.5); Mean Corpuscular Volume 96 fL (80-100); Mean Platelet Volume 11.5 fL (9.1-12.4); NEUTROPHILS ABSOLUTE AUTO 3.06 K/mm3 (1.96-9.15); NEUTROPHILS PERCENT AUTO 73 % (41-73); Platelet Count 196 K/mm3 (150-400); RDW Coefficient Variation 18.3 % (11.7-14.2); RDW Standard Deviation 63.7 fL (35.1-46.3); Red Blood Cell Count 4.01 M/mm3 (3.80-5.20)
[2018-11-21 05:31] LABS: Albumin, Blood 2.2 g/dL (3.4-5.0); Anion Gap 1 mmol/L (6-16); Blood Urea Nitrogen 53 mg/dL (8-24); Bun/Creatinine Ratio 25.4 (12.0-20.0); CO2, Blood 33 mmol/L (21-32); Calcium, Blood 8.4 mg/dL (8.5-10.1); Chloride, Blood 109 mmol/L (98-108); Creatinine, Blood 2.09 mg/dL (0.40-1.00); Glomerular Filtration Rate 25 (60-); Glucose, Blood 138 mg/dL (70-99); Phosphorus, Blood 4.9 mg/dL (2.5-4.9); Potassium, Blood 5.1 mmol/L (3.5-5.5); Sodium, Blood 143 mmol/L (136-145)
--- NOTE | 2018-11-21 06:23 | NUR ---
SHIFT SUMMARY NO ACUTE EVENTS OVERNIGHT. PATIENT ADMITTED TO TAKING 2 HOME MEDICATIONS PRAVASTATIN AND LISINOPRIL. NURSE REMOVED PATIENTS HOME MEDS FROM ROOM AND TURNED THEM INTO PHARMACY, PRINTOUT IN CHART. PATEINT EDUCATED ON HE IMPORTANCE OF NOT TAKING HOME MEDS WHILE BEING TREATED IN THE HOSPITAL SETTING. PATIENT AGREEABLE. PATIENT INCONTINENT OF BOTH BOWEL AND BLADDER BUT CAN TELL WHEN SHE HAS GONE. PATIENT UP WITH 1 PERSON ASSIST/GAIT BELT/ FWW. COULD USE BSC IF WILLING TO ALERT STAFF. NITROBID ON RIGHT CHEST. IV STARTED IN LEFT AC-PATENT. WILL CONTINUE TO MONITOR
--- NOTE | 2018-11-21 10:43 | NUR ---
PT BP THIS AM WAS 183/73, LASIX GIVEN ORDERED AND BP CAME DOWN TO 141/57, PRN HYDRALAZINE WAS NOT GIVEN AND PT HAS NO S/S OF ELEVATED BP.
--- NOTE | 2018-11-21 15:30 | NUR ---
Attempted to see pt. She is sound asleep. Will check back this leslie or tomorrow am.
--- NOTE | 2018-11-21 15:49 | NUR ---
[facility] care Initial assessment and vist. Visited with pt just after she woke to Engine Watchman and me at the bedside. She initially said "good morning" but looked at the clock and recognized that it was late afternoon. Despite being sleepy she was receptive to our visit and conversation. She confirms that she does not want any resuscitative efforts if her heart or lungs were to fail. When asked if she would want to return to the hospital for treatment if she were to have similar heart/lung s/s in the future she said, "Yes, because they can almost always make me feel better", referring to increase in diuresis and decrease in SOBOE. She says she initially needed more help at [facility] but is happy with the level of help combined with HH. Assessment of s/s done. She denies pain or distress. I did not observe any nonverbal indicators of pain, anxiety or distress. I asked her if she had identified a surrogate medical decision maker if she could not communicate or direct her care. She states her sister in law, Keisha Crowder [phone] is her medical POA and they have discussed what she wants. She is at peace with dying and not intervening if that is her s/s progress and she is unable to get relief with tx here in the future. We discussed the availability of additional support and/or hospice services if she decides that returning to the hospital is not what she wants. Instructed her to request HH SPA COORDINATOR if additional help needed at [facility]. Instructed her she may meet a d/c discharge planner tomorrow who would assist with transfer back to [facility] and resume of HH when medically ready. Pt had no requests other than some quiet time to rest and return to her nap.
--- NOTE | 2018-11-21 16:19 | NUR ---
[facility] initial visit: Marlin is active in her Religion jeison and will be followed by [facility] for her spiritual needs. She is a delightful woman, smiles easily, and engages well. She has never been and never had children. Her siblings and their children are attentive and loving. She would like her CARI to be her medical spokesperson. I was present in room when Yaz, Palliative Care RN, spoke to Marlin about her medical wishes. She does not want CPR, but does want to be able to come to the hospital for symptom management. She is not ready for hospice, although she agreed it would be something she'd be interested in later. She has lived alone all her life and recently gave up her independance and moved to an asisted living community. She loves it there and feels she is part of a community. Marlin appears tired and weak, but denies pain or concerns. She enjoys Father Cody' visits and prayers. I will remain available.
--- NOTE | 2018-11-21 17:14 | NUR ---
SHIFT SUMMARY: PT IS A/O X 4 THIS SHIFT WITH NO C/O PAIN. PT NEEDS MAX ASSIST FOR TURNING AND REPOSITIOING WELL ADLS AND HAS BEEN INCT OF B/B THIS SHIFT. PT WAS ASSISTED WITH A BEDBATH TODAY. PT HAS BEEN RESTING IN BED AFTER GETTING UP TO CHAIR FOR LUNCH. PT USES CALL LIGHT FOR HELP WHEN NEEDED.
[2018-11-22 04:56] LABS: Hemoglobin 10.3 g/dL (11.5-16.0); Mean Corpuscular HGB 27.7 pg (26.0-34.0); Mean Corpuscular HGB Conc 27.8 g/dL (31.5-36.5); Mean Platelet Volume 11.2 fL (9.1-12.4); Platelet Count 158 K/mm3 (150-400); RDW Coefficient Variation 17.7 % (11.7-14.2); RDW Standard Deviation 65.4 fL (35.1-46.3); Red Blood Cell Count 3.72 M/mm3 (3.80-5.20); White Blood Cell Count 3.42 K/mm3 (4.00-11.30)
[2018-11-22 05:00] LABS: Mean Corpuscular Volume 100 fL (80-100)
[2018-11-22 05:13] LABS: Bun/Creatinine Ratio 26.2 (12.0-20.0); Calcium, Blood 8.4 mg/dL (8.5-10.1); Creatinine, Blood 2.06 mg/dL (0.40-1.00); Potassium, Blood 5.3 mmol/L (3.5-5.5)
--- NOTE | 2018-11-22 14:19 | NUR ---
Pal Care visit Pt is much more awake and conversant today. She does not report pain and I did not observe any nonverbal indicators of pain. She worked with therapies today and states she will return to [place] in a couple of days with HH PT resuming. She inquired about her weight. Bed weight checked for her and reported to her. I do not know what amount of blankets, etc were on the bed when the previous bed wt was checked but today's bed wt is 1.5 kg less than her most recent wt documented on the white board. Pt was pleased with this. [facility] care will remain available to assist with s/s management or advanced care planning as requested. No further visits planned unless requested.
--- NOTE | 2018-11-22 16:37 | NUR ---
SHIFT SUMMARY: PT HAS BEEN A/O X 4 AT BASELINE THIS SHIFT WITH NO C/O PAIN. PT CONTINUES TO BE INCONTINENT EVEN WHEN OFFERED TO USE THE BSC. PT GOT UP TO CHAIR AFTER BREAKFAST THIS AFTERNOON. PT CONTINUES TO USE CALL LIGHT FOR ASSISTANCE WHEN NEEDED.
[2018-11-22 23:25] LABS: Adenovirus F 40/41 Not Detected (NOT DETECT); Astrovirus Not Detected (NOT DETECT); Campylobacter Sp Not Detected (NOT DETECT); Cryptosporidium Not Detected (NOT DETECT); Cyclospora Cayetanensis Not Detected (NOT DETECT); E. Coli O157 Not Detected (NOT DETECT); Entamoeba Histolytica Not Detected (NOT DETECT); Enteroaggregative E. coli-EAEC Not Detected (NOT DETECT); Enteropathogenic E. coli-EPEC Not Detected (NOT DETECT); Enterotoxigenic E. coli-ETEC Not Detected (NOT DETECT); Giardia Lamblia Not Detected (NOT DETECT); Norovirus GI/GII Not Detected (NOT DETECT); Plesiomonas Shigelloides Not Detected (NOT DETECT); Rotavirus A Not Detected (NOT DETECT); Salmonella Sp Not Detected (NOT DETECT); Sapovirus Not Detected (NOT DETECT); Shiga Toxin-prod E. coli-STEC Not Detected (NOT DETECT); Shigella/Enteroin E. coli-EIEC Not Detected (NOT DETECT); Vibrio Cholerae Not Detected (NOT DETECT); Vibrio Sp Not Detected (NOT DETECT); Yersinia Enterocolitica Not Detected (NOT DETECT)
--- NOTE | 2018-11-23 06:21 | NUR ---
SHIFT SUMMARY PATIENT SLEPT ENTIRE NIGHT. HAD LARGE BOWEL MOVEMENT AT BEGINNING OF SHIFT. SAMPLE WAS SENT TO LAB. VSS. NO ACUTE EVENTS OVERNIGHT.
--- NOTE | 2018-11-23 16:25 | NUR ---
SHIFT SUMMARY: PT A/O X 3 THIS SHIFT AT BASELINE WITH NO C/O PAIN. PT CONTINUES TO BE INCONTINENT OF B/B AND NEEDS TOTAL ASSIST WITH TOILETING AND ADLS. AFTER BREAKFAST PT WAS ASSISTED TO CHAIR. PT DECLINED WORKING WITH PT THIS AFTERNOON. [facility] NURSE CALLED FOR AN UPDATE AND THEY STATED THAT A SNF WOULD BE BEST FOR HER AFTER COMPLETING TX AT [facility] TO CONTINUE TO WORK WITH THERAPIES AND GAIN MORE STRENGTH FOR SELF CARE AND ADLS BEFORE RETURNING TO [facility]. PT IS RESTING IN BED WITH CALL LIGHT IN REACH WITH FREQUENT NURSE ROUNDING.
[2018-11-24 04:56] LABS: Hematocrit 35.2 % (33.0-51.0); Hemoglobin 9.7 g/dL (11.5-16.0); Mean Corpuscular HGB 27.4 pg (26.0-34.0); Mean Corpuscular HGB Conc 27.6 g/dL (31.5-36.5); Mean Corpuscular Volume 99 fL (80-100); Mean Platelet Volume 11.3 fL (9.1-12.4); Platelet Count 155 K/mm3 (150-400); RDW Coefficient Variation 17.3 % (11.7-14.2); RDW Standard Deviation 64.8 fL (35.1-46.3); Red Blood Cell Count 3.54 M/mm3 (3.80-5.20); White Blood Cell Count 3.62 K/mm3 (4.00-11.30)
[2018-11-24 05:26] LABS: Albumin, Blood 2.2 g/dL (3.4-5.0); Anion Gap 1 mmol/L (6-16); Blood Urea Nitrogen 59 mg/dL (8-24); Bun/Creatinine Ratio 25.3 (12.0-20.0); CO2, Blood 34 mmol/L (21-32); Calcium, Blood 8.4 mg/dL (8.5-10.1); Chloride, Blood 104 mmol/L (98-108); Creatinine, Blood 2.33 mg/dL (0.40-1.00); Glomerular Filtration Rate 22 (60-); Glucose, Blood 86 mg/dL (70-99); Potassium, Blood 5.8 mmol/L (3.5-5.5); Sodium, Blood 139 mmol/L (136-145)
--- NOTE | 2018-11-24 06:45 | NUR ---
SHIFT SUMMARY PT IS A 68 Y/O F, ADMITTED FOR ACUTE RESPIRATORY FAILURE. SHE IS A&O X 3. NO COMPLAINTS OF PAIN, NAUSEA OR SOB DURING THE NIGHT. VITALS REMAINED STABLE. NO ACUTE CHANGES IN PT CONDITION NOTED. WILL CONTINUE TO MONITOR AND TREAT PER EMAR UNTIL HAND OFF TO DAY SHIFT.
--- NOTE | 2018-11-24 08:20 | NUR ---
PT PLEASANT COOP A/O. DENIES PAIN. IS SENECA. NEED TO TALK DIRECTLY TO HER TO BE UNDERSTOOD. H/R REG, LIGHT MURMER NOTED. PER TELE: SINUS THYTHM WITH 1' BBB RATE 58. LUNGS CLEAR WITH DIM IN RT BASE. BT X4 LAST BM TODAY. STATES NORMAL. VOIDS PER BSC. 2 MAX ASST. BED IN LOW POSITION, CALL LITE IN REACH CALLS APROP
--- NOTE | 2018-11-24 14:30 | NUR ---
PER DR RICK CALABRESE TELE.
--- NOTE | 2018-11-24 15:00 | NUR ---
DR KULKARNI CALLED. STATES ORDES METOLOZONE4 PO 5 MG DAILY,STARTS TOMORROW. PLUS START ONE NOW. BUMEX IV 4M IV NOW AND THEN 2 MG IV BID STARTS TOMORROW.
--- NOTE | 2018-11-24 16:16 | NUR ---
PT VERY PLEASANT TODAY. UP IN CHAIR [address] KULKARNI DID ADJUST MEDS. NEW IV PLACED. NO OTHER CONCNERNS AT THIS TIME. BED IN LOW POSITION, CALL LITE IN REACH, CALLS APPROP
[2018-11-24 18:43] LABS: Albumin, Blood 2.3 g/dL (3.4-5.0); Anion Gap 2 mmol/L (6-16); Blood Urea Nitrogen 61 mg/dL (8-24); CO2, Blood 32 mmol/L (21-32); Calcium, Blood 8.6 mg/dL (8.5-10.1); Chloride, Blood 103 mmol/L (98-108); Creatinine, Blood 2.26 mg/dL (0.40-1.00); Glomerular Filtration Rate 23 (60-); Glucose, Blood 98 mg/dL (70-99); Phosphorus, Blood 4.9 mg/dL (2.5-4.9); Potassium, Blood 5.8 mmol/L (3.5-5.5); Sodium, Blood 137 mmol/L (136-145)
[2018-11-25 09:06] LABS: Albumin, Blood 2.2 g/dL (3.4-5.0); Anion Gap 0 mmol/L (6-16); Blood Urea Nitrogen 61 mg/dL (8-24); Bun/Creatinine Ratio 25.3 (12.0-20.0); CO2, Blood 34 mmol/L (21-32); Calcium, Blood 8.3 mg/dL (8.5-10.1); Chloride, Blood 104 mmol/L (98-108); Creatinine, Blood 2.41 mg/dL (0.40-1.00); Glomerular Filtration Rate 21 (60-); Glucose, Blood 100 mg/dL (70-99); Potassium, Blood 5.8 mmol/L (3.5-5.5); Sodium, Blood 138 mmol/L (136-145)
[2018-11-25 15:21] LABS: Bilirubin, Urine Neg (Neg); Blood, Urine 3+ (Neg); Glucose Qualitative, Urine Neg (Neg); Ketones, Urine Neg (Neg); Leukocyte Esterase, Urine 3+ (Neg); Nitrite, Urine Pos (Neg); Protein, Urine 3+ (Neg); Urobilinogen, Urine NORM (Normal)
[2018-11-25 15:36] LABS: Appearance, Urine Cloudy (Clear); Color, Urine Yellow (P-Yellow)
[2018-11-25 15:37] LABS: Bacteria Many /hpf; Hyaline Casts 0-2 /lpf (0-2); Squamous Epithelial Cells Few /hpf (Few); White Blood Cells, Urine TNTC /hpf (0-5)
[2018-11-25 16:48] LABS: Albumin, Blood 2.3 g/dL (3.4-5.0); Anion Gap 3 mmol/L (6-16); Blood Urea Nitrogen 67 mg/dL (8-24); Bun/Creatinine Ratio 28.9 (12.0-20.0); CO2, Blood 30 mmol/L (21-32); Calcium, Blood 8.7 mg/dL (8.5-10.1); Chloride, Blood 103 mmol/L (98-108); Creatinine, Blood 2.32 mg/dL (0.40-1.00); Glomerular Filtration Rate 22 (60-); Glucose, Blood 146 mg/dL (70-99); Phosphorus, Blood 5.1 mg/dL (2.5-4.9); Potassium, Blood 5.8 mmol/L (3.5-5.5); Sodium, Blood 136 mmol/L (136-145)
--- NOTE | 2018-11-25 18:45 | NUR ---
SHIFT SUMMARY OX3. METLAKATLA. 1-2 PERSON ASSIST. INCONTINENT ATTENDS IN PLACE. MORBID OBESITY. EATING AND DRINKING WELL. DM TYPE II CBG'S; NO COVERAGE REQUIRED THIS SHIFT. AWAITING DISCHARGE TO [place] ON TUESDAY. STANDING DAILY WEIGHTS PER DR. KUKLARNI.
[2018-11-26 05:06] LABS: BASOPHILS ABSOLUTE AUTO 0.03 K/mm3 (0.00-0.23); BASOPHILS PERCENT AUTO 1 % (0-2); EOSINOPHILS ABSOLUTE AUTO 0.14 K/mm3 (0.00-0.68); EOSINOPHILS PERCENT AUTO 5 % (0-6); Hematocrit 35.1 % (33.0-51.0); Hemoglobin 9.8 g/dL (11.5-16.0); IMMATURE GRAN PERCENT AUTO 0 % (0-1); LYMPHOCYTES ABSOLUTE AUTO 0.32 K/mm3 (0.84-5.20); LYMPHOCYTES PERCENT AUTO 12 % (21-46); MONOCYTES ABSOLUTE AUTO 0.38 K/mm3 (0.16-1.47); MONOCYTES PERCENT AUTO 14 % (4-13); Mean Corpuscular HGB 27.1 pg (26.0-34.0); Mean Corpuscular HGB Conc 27.9 g/dL (31.5-36.5); Mean Corpuscular Volume 97 fL (80-100); Mean Platelet Volume 12.2 fL (9.1-12.4); NEUTROPHILS ABSOLUTE AUTO 1.86 K/mm3 (1.96-9.15); NEUTROPHILS PERCENT AUTO 68 % (41-73); Platelet Count 130 K/mm3 (150-400); RDW Coefficient Variation 16.7 % (11.7-14.2); RDW Standard Deviation 59.7 fL (35.1-46.3); Red Blood Cell Count 3.62 M/mm3 (3.80-5.20); White Blood Cell Count 2.73 K/mm3 (4.00-11.30)
[2018-11-26 05:34] LABS: Magnesium, Blood 2.7 mg/dL (1.6-2.4)
[2018-11-26 05:38] LABS: Anion Gap 5 mmol/L (6-16); Blood Urea Nitrogen 64 mg/dL (8-24); Bun/Creatinine Ratio 26.1 (12.0-20.0); CO2, Blood 30 mmol/L (21-32); Calcium, Blood 8.5 mg/dL (8.5-10.1); Chloride, Blood 103 mmol/L (98-108); Creatinine, Blood 2.45 mg/dL (0.40-1.00); Glomerular Filtration Rate 21 (60-); Glucose, Blood 89 mg/dL (70-99); Phosphorus, Blood 5.1 mg/dL (2.5-4.9); Potassium, Blood 5.2 mmol/L (3.5-5.5); Sodium, Blood 138 mmol/L (136-145)
--- NOTE | 2018-11-26 06:27 | NUR ---
SHIFT SUMMARY PT ADMITTED FOR HYPOXEMIC RESPIRATORY FAILURE. DNR. ADA DIET. UP IN CHAIR TWO TIMES PER DAY. CBG BEFORE MEALS. TELE-SINUS LENO WITH A FIRST DEGRESS BLOCK, AND A BBB AT A RATE OF 50 PER DOLPHIN TRAINER. LOVENOX FOR DVT PROPHYLAXIS. PT TO GO TO [facility] ON TUESDAY. REQUIRES ALL STANDING WEIGHTS PER REPORT. PT IS [place]. 2L O2 VIA NC. 20G IV TO R FA. 1 ASSIST FROM CHAIR TO BED THIS NIGHT. TAKES MEDICATIONS WHOLE ONE AT A TIME PER REPORT. THIS NURSE ARON NOT ADMINISTER ANY ORAL PILLS THIS SHIFT THE PT REFUSED PROTONIX THIS SHIFT. THE PT PRESENTED VERY LETHARGIC BUT WOKE FOR CARE. PLEASENT AND COOPERATIVE. PT APPEARS TO BE SLEEPING COMFORTABLY AT THIS TIME WITH NO APPARENT SIGNS OF ACUTE DISTRESS. ABLE TO MAKE NEEDS KNOWN. CALL LIGHT IN REACH. FREQUENT VISUAL CHECKS IT DOES NOT APPEAR THAT PT ALWAYS USES CALL LIGHT APPROPRIATELY.
--- NOTE | 2018-11-26 17:31 | NUR ---
SHIFT SUMMARY [place]. IN NO ACUTE DISTRESS AND PLEASANT THROUGHOUT SHIFT. INCONTINENT. DENIES ANY PAIN. DM CBG'S AC AND HS. SHAD FOLLOWING PATIENT. TELE SHOWS SINUS BRADYCARIA WITH BBB. POSSIBLE DC TOMORROW BACK TO [place].
--- NOTE | 2018-11-27 04:10 | NUR ---
SHIFT SUMMARY NO APPARENT SIGNS OF ACUTE DISTRESS. PT APPEARS TO BE STRONGER SO FAR THIS SHIFT. PT ABLE TO TOLLERATE STANDING WHILE GETTING BM CLEANED UP AFTER INCONTINENCE EARLY IN THE SHIFT AND WAS A STANDBY ASSIST WITH A FWW BACK TO BED FROM CHAIR AFTER STANDING FOR THE DURATION NEEDED FOR PERICARE. THE PT APPEARS TO BE HAPPY, PLAYFUL AND JOKING SO FAR THIS SHIFT. VERY PLEASENT AND COOPERATIVE. THE PT HAS APPEARED TO SLEEP COMFORTABLY MOST OF THE NIGHT, EASILY AWAKENS FOR CARE. FREQUENT CHECKS Q 2 HRS BECAUSE IT DOES NOT APPEAR THAT PT USES CALL LIGHT TO ASK FOR ASSISTANCE. WILL CONTINUE TO MONITOR.
[2018-11-27 05:11] LABS: Albumin, Blood 2.2 g/dL (3.4-5.0); Anion Gap 3 mmol/L (6-16); Blood Urea Nitrogen 66 mg/dL (8-24); CO2, Blood 33 mmol/L (21-32); Calcium, Blood 8.5 mg/dL (8.5-10.1); Chloride, Blood 102 mmol/L (98-108); Creatinine, Blood 2.36 mg/dL (0.40-1.00); Glomerular Filtration Rate 22 (60-); Glucose, Blood 70 mg/dL (70-99); Phosphorus, Blood 4.8 mg/dL (2.5-4.9); Potassium, Blood 5.1 mmol/L (3.5-5.5); Sodium, Blood 138 mmol/L (136-145)
--- NOTE | 2018-11-27 15:56 | NUR ---
SHE HAS BEEN INONTINENT OF LARGE AMTS OF URINE AND STOOL TODAY. SHE HAD HER HOME O2 EVAL. SHE REQUIRES 2L O2. PT IS PUTTING HER BACK TO BED AFTER BEING UP IN A CHAIR SINCE BREAKFAST TIME. HER WGT WENT UP. AWARE THIS AM. JUST RECEIVED AN ORDER TO INCREASE THE DIURETIC. TELE SB IN THE 'S.
--- NOTE | 2018-11-27 17:44 | NUR ---
SHE RECEIVED A LATE AFTERNOON DOSE OF BUMEX IT HAS BEEN INCREASED TO TID. SHE WALKED WITH PT TO AND FROM THE CHAIR TO THE BATHROOM TO THE BED ONCE TODAY. O2 1L. SHE SAYS SHE IS MILDLY SOB. SHE QUALIFIED FOR O2 ALL THE TIME. TELE SB IN THE 50'S.I CALLED [facility] BACK TO LET THEM KNOW NO DISCHARGE TODAY.
--- NOTE | 2018-11-28 05:25 | NUR ---
SHIFT SUMMARY PT SLEPT WELL DURING THE NIGHT. OFFERS NO C/O'S THIS AM. NO ACUTE EVENTS NOTED DURING THE NIGHT, WILL CONTINUE TO MONITOR.
[2018-11-28 12:00] LABS: Albumin, Blood 2.2 g/dL (3.4-5.0); Anion Gap 1 mmol/L (6-16); Blood Urea Nitrogen 69 mg/dL (8-24); Bun/Creatinine Ratio 31.5 (12.0-20.0); CO2, Blood 35 mmol/L (21-32); Calcium, Blood 8.8 mg/dL (8.5-10.1); Chloride, Blood 102 mmol/L (98-108); Creatinine, Blood 2.19 mg/dL (0.40-1.00); Glomerular Filtration Rate 24 (60-); Glucose, Blood 122 mg/dL (70-99); Phosphorus, Blood 4.5 mg/dL (2.5-4.9); Potassium, Blood 5.5 mmol/L (3.5-5.5); Sodium, Blood 138 mmol/L (136-145)
--- NOTE | 2018-11-28 18:32 | NUR ---
SHE IS BACK IN BED NOW AFTER SPENDING MOST OF THE DAY UP IN THE RECLINER CHAIR. SHE HAS AMBULATED TO THE BATHROOM A FEW TIMES TODAY AND USED THE BSC. SHE WAS ALSO SHOWERED BY THE AIRCRAFT SERVICER WITH OT ALSO PRESENT AT THE BEGINNING. SHE HAS NO COMPLAINTS. SHE IS MILDLY POINT LAY [place]. SHE EATS AND DRINKS WELL BUT NOT TOO MUCH. DIURESIS GOING WELL THOUGH WE CANNOT GET AN ACCURATE OUTPUT D/T INTERMITTENT INCONTINENCE.
--- NOTE | 2018-11-29 05:17 | NUR ---
SHIFT SUMMARY PT HAS SLEPT WELL DURING THE NIGHT, IS DOWN ABOUT 3 MORE KG TODAY. OFFERS NO C/O'S. WILL CONTINUE TO MONITOR.
[2018-11-29 05:24] LABS: Albumin, Blood 2.1 g/dL (3.4-5.0); Anion Gap 2 mmol/L (6-16); Blood Urea Nitrogen 69 mg/dL (8-24); Bun/Creatinine Ratio 28.9 (12.0-20.0); CO2, Blood 37 mmol/L (21-32); Calcium, Blood 8.4 mg/dL (8.5-10.1); Chloride, Blood 101 mmol/L (98-108); Creatinine, Blood 2.39 mg/dL (0.40-1.00); Glomerular Filtration Rate 21 (60-); Glucose, Blood 69 mg/dL (70-99); Phosphorus, Blood 4.7 mg/dL (2.5-4.9); Sodium, Blood 140 mmol/L (136-145)
[2018-11-29] MEDS ORDERED: TORSE20 PO ×2 (12:38)
[2018-11-29] MEDS ORDERED: VELTASSA8.4 GM PO (12:39)
[2018-11-29] MEDS ORDERED: METO2.5 PO (12:44)
--- NOTE | 2018-11-29 17:27 | NUR ---
PATIENT DISCHARGED AT 1727 ON 11/29/18. TRANSPORTED BY [facility]
[2018-12-01 11:32] LABS: CHOL/HDL RATIO 2.7; Cholesterol 126 mg/dL (50-200); HDL Cholesterol 46 mg/dL (>39); LDL/HDL RATIO 1.4; Low Density Lipoprotein Chol 65 mg/dL (0-110); Triglycerides 74 mg/dL (30-160); Very Low Density Lipoprot Chol 14 mg/dL (6-32)
== END 2018-11-29 17:27 | disposition home health service (06) | DRG 291 ==
LOC: ER 14:17 → MEDS 16:54 → ENPENDDIS 11-29 11:41 → EDPENDDIS 11-29 11:41 → MEDS 11-29 17:27
PROVIDERS: Emergency Medicine; Family Medicine; Internal Medicine; Nurse Practitioner Family; ADMIT Internal Medicine
DX: I13.0 Hypertensive heart and chronic kidney disease with heart failure and stage 1 through stage 4 chronic kidney disease, or unspecified chronic kidney disease (principal); J96.01 Acute respiratory failure with hypoxia; I50.43 Acute on chronic combined systolic (congestive) and diastolic (congestive) heart failure; N17.9 Acute kidney failure, unspecified; Z79.4 Long term (current) use of insulin; E66.01 Morbid (severe) obesity due to excess calories; Z68.30 Body mass index [BMI] 30.0-30.9, adult; Z99.3 Dependence on wheelchair; E11.22 Type 2 diabetes mellitus with diabetic chronic kidney disease; I27.20 Pulmonary hypertension, unspecified; E78.5 Hyperlipidemia, unspecified; I27.21 Secondary pulmonary arterial hypertension; D63.1 Anemia in chronic kidney disease; Z99.81 Dependence on supplemental oxygen; E87.5 Hyperkalemia; I42.8 Other cardiomyopathies; E11.649 Type 2 diabetes mellitus with hypoglycemia without coma; N18.9 Chronic kidney disease, unspecified
CPT/HCPCS: 0097U; 36415; 36600; 71046; 80048; 80053; 80061; 80069; 81001; 82803; 82947; 83036; 83735; 83880; 84484; 85025; 85027; 93005; 93010; 94761; 96374; 97110; 97162; 97166; 97530; 97535; 99285-25; J1650; J1940

== ENCOUNTER 2018-12-08 10:21 | Emergency (ER) | payer MEDICARE ==
[~2018-12-08] VITALS: Ht 162.6 cm; Wt 127.0 kg
[~2018-12-08 10:21] MED LIST changes: +METO2.5 PO; +VELTASSA8.4 GM PO
[2018-12-08 11:40] LABS: BASOPHILS ABSOLUTE AUTO 0.04 K/mm3 (0.00-0.23); BASOPHILS PERCENT AUTO 1 % (0-2); EOSINOPHILS ABSOLUTE AUTO 0.16 K/mm3 (0.00-0.68); EOSINOPHILS PERCENT AUTO 4 % (0-6); Hematocrit 34.4 % (33.0-51.0); Hemoglobin 10.1 g/dL (11.5-16.0); IMMATURE GRAN ABSOLUTE AUTO 0.01 K/mm3 (0.00-0.10); IMMATURE GRAN PERCENT AUTO 0 % (0-1); LYMPHOCYTES ABSOLUTE AUTO 0.27 K/mm3 (0.84-5.20); LYMPHOCYTES PERCENT AUTO 6 % (21-46); MONOCYTES ABSOLUTE AUTO 0.42 K/mm3 (0.16-1.47); MONOCYTES PERCENT AUTO 9 % (4-13); Mean Corpuscular HGB 27.4 pg (26.0-34.0); Mean Corpuscular HGB Conc 29.4 g/dL (31.5-36.5); Mean Corpuscular Volume 94 fL (80-100); Mean Platelet Volume 12.4 fL (9.1-12.4); NEUTROPHILS ABSOLUTE AUTO 3.67 K/mm3 (1.96-9.15); NEUTROPHILS PERCENT AUTO 80 % (41-73); Platelet Count 167 K/mm3 (150-400); RDW Coefficient Variation 16.4 % (11.7-14.2); RDW Standard Deviation 56.5 fL (35.1-46.3); Red Blood Cell Count 3.68 M/mm3 (3.80-5.20); White Blood Cell Count 4.57 K/mm3 (4.00-11.30)
[2018-12-08 11:48] LABS: Albumin, Blood 2.4 g/dL (3.4-5.0); Albumin/Globulin Ratio 0.7 (0.8-1.8); Bilirubin, Total 0.4 mg/dL (0.1-1.0); Bun/Creatinine Ratio 31.2 (12.0-20.0); Calcium, Blood 8.6 mg/dL (8.5-10.1); Creatinine, Blood 2.05 mg/dL (0.40-1.00); Globulin, Blood 3.5 g/dL (2.2-4.0); Total Protein, Blood 5.9 g/dL (6.4-8.2)
== END 2018-12-08 15:40 | disposition home or self-care (01) ==
LOC: ER 10:21
PROVIDERS: Emergency Medicine
DX: R60.0 Localized edema (principal); J45.909 Unspecified asthma, uncomplicated; I11.0 Hypertensive heart disease with heart failure; I50.9 Heart failure, unspecified; E11.9 Type 2 diabetes mellitus without complications; D64.9 Anemia, unspecified; Z79.899 Other long term (current) drug therapy
CPT/HCPCS: 36415; 80053; 85025; 96361; 96374; 99284-25; J1885; J7030

== ENCOUNTER → 2019-12-20 | Outpatient (CLI) | payer OTHER ==
[2019-12-20 17:02] LABS: Creatinine, Urine Random 64.7 mg/dL (27.00-270.00)
[2019-12-20 17:28] LABS: Microalb/Creat Ratio UR, Rand 2843.89 mg/g (0.000-30.000)
== END | disposition home or self-care (01) ==
LOC: LAB SHORT 14:30 → LAB 14:30
PROVIDERS: Nurse Practitioner Family
DX: E11.40 Type 2 diabetes mellitus with diabetic neuropathy, unspecified (principal)
CPT/HCPCS: 82043; 82570

== ENCOUNTER 2020-01-15 16:48 | Emergency (ER) | payer OTHER ==
[~2020-01-15] VITALS: Ht 162.6 cm; Wt 94.8 kg
[2020-01-15 17:37] LABS: BASOPHILS ABSOLUTE AUTO 0.04 K/mm3 (0.00-0.23); BASOPHILS PERCENT AUTO 1 % (0-2); EOSINOPHILS ABSOLUTE AUTO 0.25 K/mm3 (0.00-0.68); EOSINOPHILS PERCENT AUTO 4 % (0-6); Hematocrit 28.1 % (33.0-51.0); Hemoglobin 8.7 g/dL (11.5-16.0); IMMATURE GRAN ABSOLUTE AUTO 0.02 K/mm3 (0.00-0.10); IMMATURE GRAN PERCENT AUTO 0 % (0-1); LYMPHOCYTES ABSOLUTE AUTO 0.71 K/mm3 (0.84-5.20); LYMPHOCYTES PERCENT AUTO 11 % (21-46); MONOCYTES ABSOLUTE AUTO 0.42 K/mm3 (0.16-1.47); MONOCYTES PERCENT AUTO 7 % (4-13); Mean Corpuscular HGB 31.1 pg (26.0-34.0); Mean Corpuscular Volume 100 fL (80-100); Mean Platelet Volume 10.6 fL (9.1-12.4); NEUTROPHILS ABSOLUTE AUTO 4.95 K/mm3 (1.96-9.15); NEUTROPHILS PERCENT AUTO 78 % (41-73); Platelet Count 178 K/mm3 (150-400); RDW Coefficient Variation 13.2 % (11.7-14.2); RDW Standard Deviation 48.4 fL (35.1-46.3); White Blood Cell Count 6.39 K/mm3 (4.00-11.30)
[2020-01-15 17:53] LABS: International Normalized Ratio 0.98; Prothrombin Time Results 10.5 Sec (9.7-11.5)
[2020-01-15 18:08] LABS: Calcium, Blood 9.2 mg/dL (8.5-10.1); Creatinine, Blood 3.75 mg/dL (0.40-1.00); Potassium, Blood 4.7 mmol/L (3.5-5.5)
== END 2020-01-15 19:41 | disposition short-term general hospital (02) ==
LOC: ER 16:48
PROVIDERS: Emergency Medicine
DX: T82.838A Hemorrhage due to vascular prosthetic devices, implants and grafts, initial encounter (principal); D64.9 Anemia, unspecified; I13.0 Hypertensive heart and chronic kidney disease with heart failure and stage 1 through stage 4 chronic kidney disease, or unspecified chronic kidney disease; E11.22 Type 2 diabetes mellitus with diabetic chronic kidney disease; N18.9 Chronic kidney disease, unspecified; I50.9 Heart failure, unspecified; Z79.899 Other long term (current) drug therapy; Z79.4 Long term (current) use of insulin; Z20.828 Contact with and (suspected) exposure to other viral communicable diseases
CPT/HCPCS: 36415; 80048; 85025; 85610; 85730; 86850; 86900; 86901; 93971; 99285-25; U0002

== ENCOUNTER 2020-04-29 14:19 | Emergency (ER) | payer OTHER ==
[~2020-04-29] VITALS: Ht 180.3 cm; Wt 95.7 kg
[~2020-04-29 14:19] MED LIST changes: +OMEP20ER PO; +POTA10T PO; +Prinivil10 MG PO
[2020-04-29 16:22] LABS: BASOPHILS ABSOLUTE AUTO 0.03 K/mm3 (0.00-0.23); BASOPHILS PERCENT AUTO 1 % (0-2); EOSINOPHILS ABSOLUTE AUTO 0.13 K/mm3 (0.00-0.68); EOSINOPHILS PERCENT AUTO 3 % (0-6); Hematocrit 36.1 % (33.0-51.0); Hemoglobin 11.4 g/dL (11.5-16.0); IMMATURE GRAN ABSOLUTE AUTO 0.01 K/mm3 (0.00-0.10); IMMATURE GRAN PERCENT AUTO 0 % (0-1); LYMPHOCYTES ABSOLUTE AUTO 0.53 K/mm3 (0.84-5.20); LYMPHOCYTES PERCENT AUTO 11 % (21-46); MONOCYTES ABSOLUTE AUTO 0.34 K/mm3 (0.16-1.47); MONOCYTES PERCENT AUTO 7 % (4-13); Mean Corpuscular HGB 31.1 pg (26.0-34.0); Mean Corpuscular HGB Conc 31.6 g/dL (31.5-36.5); Mean Corpuscular Volume 98 fL (80-100); Mean Platelet Volume 11.2 fL (9.1-12.4); NEUTROPHILS ABSOLUTE AUTO 3.98 K/mm3 (1.96-9.15); NEUTROPHILS PERCENT AUTO 79 % (41-73); Platelet Count 181 K/mm3 (150-400); RDW Coefficient Variation 13.1 % (11.7-14.2); RDW Standard Deviation 46.8 fL (35.1-46.3); Red Blood Cell Count 3.67 M/mm3 (3.80-5.20); White Blood Cell Count 5.02 K/mm3 (4.00-11.30)
[2020-04-29 16:35] LABS: International Normalized Ratio 0.96; Prothrombin Time Results 10.3 Sec (9.7-11.5)
[2020-04-29 16:42] LABS: Albumin, Blood 2.8 g/dL (3.4-5.0); Albumin/Globulin Ratio 0.8 (0.8-1.8); Bilirubin, Total 0.3 mg/dL (0.1-1.0); Bun/Creatinine Ratio 15.1 (12.0-20.0); Calcium, Blood 9.3 mg/dL (8.5-10.1); Creatinine, Blood 3.91 mg/dL (0.40-1.00); Globulin, Blood 3.6 g/dL (2.2-4.0); Potassium, Blood 4.2 mmol/L (3.5-5.5); Total Protein, Blood 6.4 g/dL (6.4-8.2)
[2020-04-29 19:51] LABS: Influenza A, PCR Negative (NEGATIVE); Influenza B, PCR Negative (NEGATIVE); Resp Syncytial Virus, PCR Negative (NEGATIVE); SARS-Cov-2 (COVID-19) PCR, MMC Negative (NEGATIVE)
[2020-04-30] MEDS ORDERED: Hair, Skin & N1 EACH PO (15:24)
[2020-04-30] MEDS ORDERED: ATOR80 PO (15:24)
== END 2020-04-29 18:51 | disposition home or self-care (01) ==
LOC: ER 14:19
PROVIDERS: Emergency Medicine; Physician Assistant
DX: T82.838A Hemorrhage due to vascular prosthetic devices, implants and grafts, initial encounter (principal); E11.22 Type 2 diabetes mellitus with diabetic chronic kidney disease; N18.9 Chronic kidney disease, unspecified; I10 Essential (primary) hypertension; Z20.828 Contact with and (suspected) exposure to other viral communicable diseases; Z99.2 Dependence on renal dialysis; Z79.899 Other long term (current) drug therapy
CPT/HCPCS: 0241U; 36415; 80053; 85025; 85610; 93971; 99284-25

== ENCOUNTER 2020-04-30 14:57 | Day surgery (SDC) | payer OTHER ==
[~2020-04-30] VITALS: Ht 162.6 cm; Wt 96.0 kg
[2020-04-30] MEDS ORDERED: Hair, Skin & N1 EACH PO (15:24)
[2020-04-30] MEDS ORDERED: ATOR80 PO (15:24)
--- NOTE | 2020-04-30 18:58 | NUR ---
1845 PURSE STRING SUTURES REMOVED ORDERED. VVS. NO BLEEDING NOTED, CLOTH DOTS REPLACED AND PATIENT INSTRUCTED TO REMOVED TOMORROW. TOLERATED WELL. PIV REMOVED AND CATHETER TIP INTACT. PRESSURE DRESSING APPLIED AND NO BLEEDING NOTED. PATIENT DRESSING SELF. ALL BELONGINGS GATHERED. CALLED FOR [facility]. [employer] TRANSFER ARRANGED PRIOR AND PLAN TO [employer] CHIEF MARKETING OFFICER PATIENT AT 1900
--- NOTE | 2020-04-30 19:13 | NUR ---
PATIENT DISCHARGE HOME VIA WHEELCHAIR TO [facility].
== END 2020-04-30 22:45 | disposition home or self-care (01) ==
LOC: MHTC 14:57
PROC: 031C3ZF Bypass Left Radial Artery to Lower Arm Vein, Percutaneous Approach (ICD-10-PCS; principal; 2020-04-30)
DX: N18.6 End stage renal disease (principal); I12.0 Hypertensive chronic kidney disease with stage 5 chronic kidney disease or end stage renal disease; E11.22 Type 2 diabetes mellitus with diabetic chronic kidney disease; Z79.899 Other long term (current) drug therapy
CPT/HCPCS: 76937; C1725; C1769; C1887; C1894; J1644; J2250; J3010; J7030; Q9967

== ENCOUNTER 2021-06-18 14:10 | Day surgery (SDC) | payer OTHER ==
[~2021-06-18] VITALS: Ht 162.6 cm; Wt 91.4 kg
[~2021-06-18 14:10] MED LIST changes: +8 HOUR ACETAMI650 MG PO; +ASPERCREME LIDO73 ML; +ATOR40TA PO; +ATOR80 PO; +Hair, Skin & N1 EACH PO; +SEVEC800 PO
[2021-06-18] MEDS ORDERED: Carvedilol12.5 MG PO (14:37)
[2021-06-18] MEDS ORDERED: ESCI20 (14:39)
--- NOTE | 2021-06-18 14:54 | NUR ---
06/18/21 1454 Minnie Ann AT 1430 PLEDGET AT 1431
== END 2021-06-18 16:00 | disposition home or self-care (01) ==
LOC: ORSCSDS 14:10
PROVIDERS: Ophthalmology
PROC: 08RJ3JZ Replacement of Right Lens with Synthetic Substitute, Percutaneous Approach (ICD-10-PCS; principal; 2021-06-18 14:15)
DX: H25.13 Age-related nuclear cataract, bilateral (principal); I10 Essential (primary) hypertension; E11.36 Type 2 diabetes mellitus with diabetic cataract; H26.9 Unspecified cataract; Z79.4 Long term (current) use of insulin; N18.6 End stage renal disease; K21.9 Gastro-esophageal reflux disease without esophagitis; Z79.899 Other long term (current) drug therapy
CPT/HCPCS: 82947; J2001; J2250; J2704; J3010; J3301; J7040; V2632

== ENCOUNTER 2021-07-07 15:26 | Emergency (ER) | payer OTHER ==
[~2021-07-07] VITALS: Ht 162.6 cm; Wt 94.3 kg
[~2021-07-07 15:26] MED LIST changes: +Carvedilol12.5 MG PO; +ESCI20
== END 2021-07-07 18:01 | disposition home or self-care (01) ==
LOC: ER 15:26
DX: S40.011A Contusion of right shoulder, initial encounter (principal); S50.01XA Contusion of right elbow, initial encounter; E11.22 Type 2 diabetes mellitus with diabetic chronic kidney disease; I12.0 Hypertensive chronic kidney disease with stage 5 chronic kidney disease or end stage renal disease; N18.6 End stage renal disease; Z99.2 Dependence on renal dialysis; Z79.899 Other long term (current) drug therapy; W05.0XXA Fall from non-moving wheelchair, initial encounter
CPT/HCPCS: 72220; 73030; 73070; 99283-25

== ENCOUNTER 2021-08-27 12:19 | Day surgery (SDC) | payer OTHER ==
[~2021-08-27] VITALS: Ht 162.6 cm; Wt 91.6 kg
--- NOTE | 2021-08-27 14:00 | NUR ---
08/27/21 [place] PT AWAKE, ALERT, SMILING. PT STATES SHE FEELS GREAT. DR. CARMONA IN ROOM TO ASSESS PT. PER DR. CARMONA, PT IS OK TO GO HOME.
== END 2021-08-27 14:08 | disposition home or self-care (01) ==
LOC: ORSCSDS 12:19
PROVIDERS: Ophthalmology
PROC: 08RK3JZ Replacement of Left Lens with Synthetic Substitute, Percutaneous Approach (ICD-10-PCS; principal; 2021-08-27 14:15)
DX: H25.12 Age-related nuclear cataract, left eye (principal); I10 Essential (primary) hypertension; E11.22 Type 2 diabetes mellitus with diabetic chronic kidney disease; I12.0 Hypertensive chronic kidney disease with stage 5 chronic kidney disease or end stage renal disease; N18.6 End stage renal disease; Z79.4 Long term (current) use of insulin; Z79.899 Other long term (current) drug therapy
CPT/HCPCS: 82947; J2001; J2250; J3010; J3301; J7040; V2632

== ENCOUNTER 2023-11-22 16:07 | Emergency (ER) | payer OTHER ==
[~2023-11-22] VITALS: Ht 152.4 cm; Wt 93.0 kg
[~2023-11-22 16:07] MED LIST changes: +Ativan1 MG PO; +BUPR100 PO; -ESCI20; +LIDO700A20 TOP; +LOPE2C PO; +MIDO5 PO; +VALA500 PO; +VALGANCICLOVIR PO
[2023-11-22] MEDS ORDERED: INSULANI (16:25)
[2023-11-22] MEDS ORDERED: Carvedilol12.5 MG PO (16:25)
[2023-11-22] MEDS ORDERED: CARV25 PO (16:25)
[2023-11-22] MEDS ORDERED: BUPR100 PO (16:25)
[2023-11-22] MEDS ORDERED: Prinivil10 MG PO (16:26)
[2023-11-22] MEDS ORDERED: TORSE20 PO (16:26)
[2023-11-22] MEDS ORDERED: Acetaminophen 325 MG TABLET PO ONE (16:45)
[2023-11-22 18:15] VITALS: BP 180/83
== END 2023-11-22 18:45 | disposition home or self-care (01) ==
LOC: ER 16:07
DX: M79.671 Pain in right foot (principal); W01.0XXA Fall on same level from slipping, tripping and stumbling without subsequent striking against object, initial encounter; I50.9 Heart failure, unspecified; E11.22 Type 2 diabetes mellitus with diabetic chronic kidney disease; N18.6 End stage renal disease; Z79.899 Other long term (current) drug therapy; Z79.4 Long term (current) use of insulin
CPT/HCPCS: 73620; 99284-25; A9270